=== PATIENT | male | born 1955 | race Caucasian/White ===

== ENCOUNTER 2016-11-03 18:46 | Emergency (ER) | payer OTHER ==
[~2016-11-03] VITALS: Ht 175.3 cm; Wt 72.0 kg
[~2016-11-03 18:46] MED LIST: CARA1TAB6 PO; GABA100C4 PO; LANS30CA PO; LEVO25TA4 PO; VITA100021 INJ; VITA200013 PO
[2016-11-03 18:48] VITALS: BP 142/80; PULSE 66; RESP 20; TEMP 97.8; O2SAT 99
--- NOTE | 2016-11-03 19:29 | PD ---
HPI . Abdominal pain Chief Complaint: Abdominal Pain Time Seen by Provider: 19:21 Travel History International Travel<30 days: No Contact w/Intl Traveler<30days: No Traveled to known affect area: No History of Present Illness HPI Patient presents complaining with chronic abdominal pain associated with constipation. Onset was over a month ago. He waited by his primary care physician and had a CT of his abdomen and pelvis done at [facility]. Unfortunately, we do not have access to those films. The patient states that they saw something in the right side of his abdomen but he does not know what. He states that he has subsequently been referred to gastroenterology. That appointment is on November 16. Patient states that he is unable to wait that long to be seen for this problem. He denies fever. He denies vomiting. He reports chronic symptoms. He states that he is followed by urology for that. He states that that is unrelated to his current abdominal complaints. He reports that his symptoms are relieved by a laxative and are exacerbated by eating. PFSH Past Medical History Heart Rhythm Problems: No Cardiac Catheterization: No Cardiovascular Problems: No High Cholesterol: No Congestive Heart Failure: No Diabetes: No Diminished Hearing: No GERD: Yes (acid reflux) Hypertension: Yes Past Surgical History Coronary Artery Bypass Graft: No Eye Surgery: Yes (CATARACT SURG) Social History Alcohol Use: Yes (ocass. ) Tobacco Use: No Substance Use: No Allergies-Medications (Allergen,Severity, Reaction): Coded Allergies: Penicillin (Verified Allergy, Unknown, cannot remember, 11/03/16) Reported Meds & Prescriptions Reported Meds & Active Scripts Active Reported Vitamin B-12 (Cyanocobalamin) 1,000 Mcg Subl 1,000 Mcg INJ WEEKLY Carafate (Sucralfate) 1 Gm Tab 1 Gm PO TID On empty stomach Lansoprazole 30 Mg Capdr 30 Mg PO BID Vitamin D (Cholecalciferol) 2,000 Unit Cap 2,000 Units PO DAILY Gabapentin 100 Mg Cap 100 Mg PO TID Levothyroxine (Levothyroxine Sodium) 25 Mcg Tab 25 Mcg PO DAILY Review of Systems Except as stated in HPI: all other systems reviewed are Neg General / Constitutional: No: Fever, Chills Gastrointestinal: Positive: Abdominal Pain, Constipation, No: Nausea, Vomiting , Diarrhea Physical Exam Narrative GENERAL: Healthy-appearing and in no acute distress. SKIN: Warm and dry. HEAD: Atraumatic. Normocephalic. EYES: Pupils equal and round. Divergent gaze. ENT: No nasal bleeding or discharge. Mucous membranes pink and moist. NECK: Trachea midline. Neck supple. CARDIOVASCULAR: Regular rate and rhythm. Heart sounds normal. RESPIRATORY: No accessory muscle use. Lungs clear with full air movement throughout. GASTROINTESTINAL: Abdomen soft. No guarding or rebound. Right sided mid to lower abdominal tenderness. Nondistended. MUSCULOSKELETAL: No obvious deformities. No edema. NEUROLOGICAL: Awake and alert. No obvious cranial nerve deficits. Motor grossly within normal limits. Normal speech. PSYCHIATRIC: Appropriate mood and affect; insight and judgment normal. Data Data Last Documented VS Vital Signs Date Time Temp Pulse Resp B/P Pulse Ox O2 Delivery O2 Flow Rate FiO2 11/03/16 19:33 18 99 Room Air 11/03/16 18:48 97.8 66 142/80 Orders Complete Blood Count With Diff (11/03/16 19:21) Comprehensive Metabolic Panel (11/03/16 19:21) Urinalysis - C+S If Indicated (11/03/16 19:21) Ct Abd/Pel W Iv Contrast(Rout) (11/03/16 19:21) Iv Access Insert/Monitor (11/03/16 19:21) Ecg Monitoring (11/03/16 19:21) Oximetry (11/03/16 19:21) Sodium Chloride 0.9% Flush (Ns Flush) (11/03/16 19:30) Electrocardiogram (11/03/16 19:21) Oral Contrast - Adult (11/03/16 19:30) Diatrizoate Liq ( Gastrodani Liq) (11/03/16 19:38) Iohexol 350 Inj (Omnipaque 350 Inj) (11/03/16 20:43) Labs Laboratory Tests Test 11/03/16 19:30 White Blood Count 5.8 TH/MM3 Red Blood Count 5.38 MIL/MM3 Hemoglobin 16.6 GM/DL Hematocrit 47.3 % Mean Corpuscular Volume 87.9 FL Mean Corpuscular Hemoglobin 30.9 PG Mean Corpuscular Hemoglobin 35.1 % Concent Red Cell Distribution Width 15.1 % Platelet Count 212 TH/MM3 Mean Platelet Volume 7.7 FL Neutrophils (%) (Auto) 57.1 % Lymphocytes (%) (Auto) 30.2 % Monocytes (%) (Auto) 10.2 % Eosinophils (%) (Auto) 1.8 % Basophils (%) (Auto) 0.7 % Neutrophils # (Auto) 3.3 TH/MM3 Lymphocytes # (Auto) 1.8 TH/MM3 Monocytes # (Auto) 0.6 TH/MM3 Eosinophils # (Auto) 0.1 TH/MM3 Basophils # (Auto) 0.0 TH/MM3 CBC Comment DIFF FINAL Differential Comment Sodium Level 140 MEQ/L Potassium Level 4.2 MEQ/L Chloride Level 102 MEQ/L Carbon Dioxide Level 32.5 MEQ/L Anion Gap 6 MEQ/L Blood Urea Nitrogen 19 MG/DL Creatinine 0.96 MG/DL Estimat Glomerular Filtration 80 ML/MIN Rate Random Glucose 88 MG/DL Calcium Level 9.1 MG/DL Total Bilirubin 0.6 MG/DL Aspartate Amino Transf 16 U/L (AST/SGOT) Alanine Aminotransferase 38 U/L (ALT/SGPT) Alkaline Phosphatase 70 U/L Total Protein 7.9 GM/DL Albumin 4.4 GM/DL [facility] Medical Decision Making Medical Screen Exam Complete: Yes Emergency Medical Condition: Yes Medical Record Reviewed: Yes Interpretation(s) EKG shows a normal sinus rhythm. EKG is unchanged from previous. Differential Diagnosis Differential diagnosis of abdominal pain includes but is not limited to gastritis, pancreatitis, hepatitis, gastroenteritis, gallbladder disease, constipation, urinary retention, UTI, peptic ulcer disease, diverticulitis or appendicitis Narrative Course Patient presents for the evaluation of chronic right-sided abdominal pain with constipation. CBC & BMP Diagram 11/03/16 19:30 Diagnosis Primary Impression: Abdominal pain Qualified Code: R10.31 - Right lower quadrant abdominal pain Condition: Stable Stefani Rojo MD Nov 03, 2016 19:29
[2016-11-03] MEDS ORDERED: SODIUM CHLORIDE 0.9% FLUSH 10 ML FLUSH IV FLUSH PRN (19:30)
[2016-11-03 19:33] VITALS: RESP 18; O2SAT 99
[2016-11-03] MEDS ORDERED: DIATRIZOATE MEGLUM/DIATRIZOATE SOD 9 ML CUP ONE (19:38)
[2016-11-03 20:14] LABS: AUTOMATED NEUTROPHIL # 3.3 TH/MM3 (1.8-7.7); BASOPHIL % 0.7 % (0.0-2.0); EOSINOPHIL # 0.1 TH/MM3 (0-0.4); EOSINOPHIL % 1.8 % (0.0-4.0); HEMATOCRIT 47.3 % (39.0-51.0); HEMO FLAGS DIFF FINAL; LYMPH % 30.2 % (9.0-44.0); LYMPHOCYTE # 1.8 TH/MM3 (1.0-4.8); MEAN CELL VOLUME 87.9 FL (80.0-100.0); MEAN CORPUSCULAR HEMOGLOBIN 30.9 PG (27.0-34.0); MEAN CORPUSCULAR HGB CONC 35.1 % (32.0-36.0); MONO % 10.2 % (0.0-8.0); NEUT % 57.1 % (16.0-70.0); PLATELET COUNT 212 TH/MM3 (150-450); RED BLOOD COUNT 5.38 MIL/MM3 (4.50-5.90); RED CELL DISTRIBUTION WIDTH 15.1 % (11.6-17.2); WHITE BLOOD COUNT 5.8 TH/MM3 (4.0-11.0)
[2016-11-03 20:25] LABS: ANION GAP 6 MEQ/L (5-15); AST (GOT) 16 U/L (15-37); BICARBONATE 32.5 MEQ/L (21.0-32.0); BLOOD UREA NITROGEN 19 MG/DL (7-18); CHLORIDE 102 MEQ/L (98-107); GLOMERULAR FILTRATION RATE 80 ML/MIN (>89); POTASSIUM 4.2 MEQ/L (3.5-5.1); SODIUM (NA) 140 MEQ/L (136-145)
[2016-11-03 20:28] LABS: ALKALINE PHOSPHATASE 70 U/L (45-117); ALT (GPT) 38 U/L (12-78); TOTAL BILIRUBIN ADULT 0.6 MG/DL (0.2-1.0)
[2016-11-03] MEDS ORDERED: IOHEXOL 350 MG/ML 10 ML VIAL (for RAD DIAG) IV ONE (20:43)
[2016-11-03 20:50] VITALS: BP 111/67; PULSE 70; RESP 18; O2SAT 99
[2016-11-03] MEDS ORDERED: DICYCLOMINE HCL 20 MG/2 ML VIAL IM ONE (21:00)
--- NOTE | 2016-11-03 21:00 | RADRPT ---
EXAM DATE/TIME: 11/03/2016 20:41 [facility] COMPARISON: CT ABDOMEN & PELVIS W CONTRAST, August 03, 2014, 18:11. EXTERNAL COMPARISON : [facility], CT ABDOMEN AND CTA RUNOFF October 22, 2016 INDICATIONS : Diffuse abdominal pain X one month; worsening today. IV CONTRAST: 95 cc Omnipaque 350 (iohexol) IV ORAL CONTRAST: Prescribed oral contrast ingested. RADIATION DOSE: 7.95 CTDIvol (mGy) MEDICAL HISTORY : Gastroesophageal reflux disease. SURGICAL HISTORY : None. ENCOUNTER: Initial ACUITY: 1 month PAIN SCALE: 4/10 LOCATION: Bilateral abdomen TECHNIQUE: Volumetric scanning of the abdomen and pelvis was performed. Using automated exposure control and ad justment of the mA and/or kV according to patient size, radiation dose was kept as low as reasonably achievable to obtain optimal diagnostic quality images. FINDINGS: LOWER LUNGS: The visualized lower lungs are clear. LIVER: Homogeneous density without lesion. There is no dilation of the biliary tree. No calcified gallston es. SPLEEN: Normal size without lesion. PANCREAS: Within normal limits. KIDNEYS: Normal in size and shape. There is no mass, stone or hydronephrosis. ADRENAL GLANDS: Within normal limits. VASCULAR: There is no aortic aneurysm. BOWEL/MESENTERY: The stomach, small bowel, and colon demonstrate no acute abnormality. There is no free intraperitone al air or fluid. The appendix is unremarkable. There is stool in the colon. No inflammatory changes a re seen. A few scattered diverticula are again noted. There's been no significant changes compared to the prior study. ABDOMINAL WALL: Within normal limits. RETROPERITONEUM: There is no lymphadenopathy. BLADDER: No wall thickening or mass. REPRODUCTIVE: Within normal limits. INGUINAL: There is no lymphadenopathy or hernia. MUSCULOSKELETAL: Within normal limits for patient age. CONCLUSION: Unremarkable and stable CT scan of the abdomen and pelvis compared to the prior examination. Madhu Yost MD on November 03, 2016 at 20:56 Board Certified Radiologist. This report was verified electronically.
[2016-11-03] MEDS ORDERED: LACTCAP8 PO (21:07)
[2016-11-03] MEDS ORDERED: RANI150T PO (21:07)
[2016-11-03] MEDS ORDERED: PEG (High)/E-LYTE SOLN 4000 ML BTL PO ONE (21:30)
--- NOTE | 2016-11-03 21:30 | PD ---
Physical Exam Date Seen by Provider: Nov 03, 2016 Time Seen by Provider: 21:27 Data Data Last Documented VS Vital Signs Date Time Temp Pulse Resp B/P Pulse Ox O2 Delivery O2 Flow Rate FiO2 11/03/16 20:50 70 18 111/67 99 Room Air 11/03/16 18:48 97.8 Orders Complete Blood Count With Diff (11/03/16 19:21) Comprehensive Metabolic Panel (11/03/16 19:21) Urinalysis - C+S If Indicated (11/03/16 19:21) Ct Abd/Pel W Iv Contrast(Rout) (11/03/16 19:21) Iv Access Insert/Monitor (11/03/16 19:21) Ecg Monitoring (11/03/16 19:21) Oximetry (11/03/16 19:21) Sodium Chloride 0.9% Flush (Ns Flush) (11/03/16 19:30) Electrocardiogram (11/03/16 19:21) Oral Contrast - Adult (11/03/16 19:30) Diatrizoate Liq ( Gastroview Liq) (11/03/16 19:38) Iohexol 350 Inj (Omnipaque 350 Inj) (11/03/16 20:43) Dicyclomine Inj (Bentyl Inj) (11/03/16 21:00) Peg (High)/E-Lyte Liq (Colyte Liq) (11/03/16 21:30) Labs Laboratory Tests Test 11/03/16 19:30 White Blood Count 5.8 TH/MM3 Red Blood Count 5.38 MIL/MM3 Hemoglobin 16.6 GM/DL Hematocrit 47.3 % Mean Corpuscular Volume 87.9 FL Mean Corpuscular Hemoglobin 30.9 PG Mean Corpuscular Hemoglobin 35.1 % Concent Red Cell Distribution Width 15.1 % Platelet Count 212 TH/MM3 Mean Platelet Volume 7.7 FL Neutrophils (%) (Auto) 57.1 % Lymphocytes (%) (Auto) 30.2 % Monocytes (%) (Auto) 10.2 % Eosinophils (%) (Auto) 1.8 % Basophils (%) (Auto) 0.7 % Neutrophils # (Auto) 3.3 TH/MM3 Lymphocytes # (Auto) 1.8 TH/MM3 Monocytes # (Auto) 0.6 TH/MM3 Eosinophils # (Auto) 0.1 TH/MM3 Basophils # (Auto) 0.0 TH/MM3 CBC Comment DIFF FINAL Differential Comment Sodium Level 140 MEQ/L Potassium Level 4.2 MEQ/L Chloride Level 102 MEQ/L Carbon Dioxide Level 32.5 MEQ/L Anion Gap 6 MEQ/L Blood Urea Nitrogen 19 MG/DL Creatinine 0.96 MG/DL Estimat Glomerular Filtration 80 ML/MIN Rate Random Glucose 88 MG/DL Calcium Level 9.1 MG/DL Total Bilirubin 0.6 MG/DL Aspartate Amino Transf 16 U/L (AST/SGOT) Alanine Aminotransferase 38 U/L (ALT/SGPT) Alkaline Phosphatase 70 U/L Total Protein 7.9 GM/DL Albumin 4.4 GM/DL [facility] Medical Record Reviewed: Yes Supervised Visit with GAL: Yes Interpretation(s) Last 24 hours Impressions Abdomen/Pelvis CT 11/03/161920 Signed Impressions: Service Date/Time: Thursday, November 03, 2016 20:41 - CONCLUSION: Unremarkable and stable CT scan of the abdomen and pelvis compared to the prior examination. Madhu Yost MD CBC & BMP Diagram 11/03/16 19:30 Differential Diagnosis Differential diagnoses: Constipation, diverticulitis, inflammatory bowel disease Narrative Course Patient's laboratory tests have been reviewed. The patient is resting comfortable in examination room. His CAT scan is unremarkable for any acute intra-abdominal process. I discussed with the patient taking home a jug of GoLYTELY and to drink a cup of it while awake until the moves his bowels freely. He is also advised to return to the ER if he develops worsening pain, fever, nausea vomiting or worsening symptoms. Patient verbally understands treatment plan of follow-up and agrees. This is abdominal pain, constipation Diagnosis Primary Impression: Abdominal pain Qualified Code: R10.31 - Right lower quadrant abdominal pain Patient Instructions: General Instructions Additional Instruction: Rest. GoLYTELY 1 cup every hour while awake until you move your bowels freely. Discontinue GoLYTELY at that point. Follow-up with your doctor on Saturday. Return to the ER if symptoms worsen or any problem develops. Med/Other Pt SpecificInfo: Other (GoLYTELY) Disposition: 01 DISCHARGE HOME Condition: Stable [place] Nov 03, 2016 21:30
[2016-11-03 22:21] VITALS: BP 92/55; PULSE 59; RESP 18; TEMP 98.4; O2SAT 98
[2016-11-03 22:46] LABS: BLOOD, URINE NEG (NEG); COMMENT (UR) CULT NOT INDICATED; CULTURE IF INDICATED CULT NOT INDICATED; GLUCOSE,URINE NEG (NEG); KETONE, URINE NEG (NEG); MUCUS URINE FEW /lpf (OCC); NITRITE,URINE NEG (NEG); URINE COLOR YELLOW (YELLW/STRAW)
--- NOTE | 2016-11-04 10:32 | EKG ---
Date Performed: 11/03/2016 Time Performed: 19:50:02 PTAGE: 61 years EKG: SINUS BRADYCARDIA NONSPECIFIC T-WAVE ABNORMALITY BORDERLINE ECG Compared to prior tracing n o significant change PREVIOUS TRACING : 06/09/2016 15.01 DOCTOR: Kathryn Rock Interpretating Date/Time 11/04/2016 10:26:32
== END 2016-11-03 22:28 | disposition home or self-care (01) ==
LOC: NEPD 18:46
DX: K59.00 Constipation, unspecified (principal); I10 Essential (primary) hypertension; R00.1 Bradycardia, unspecified
CPT/HCPCS: 74177; 80053; 81001; 85025; 93005; 96372; 99284; J0500; Q9963; Q9967

== ENCOUNTER 2017-07-10 13:28 | Observation (INO) | payer OTHER ==
[~2017-07-10] VITALS: Ht 175.3 cm; Wt 73.0 kg
[~2017-07-10 13:28] MED LIST changes: -CARA1TAB6 PO; -GABA100C4 PO; +LACTCAP8 PO; -LANS30CA PO; -LEVO25TA4 PO; +RANI150T PO; -VITA100021 INJ
[2017-07-10 13:29] VITALS: BP 133/76; PULSE 75; RESP 16; TEMP 96.8; O2SAT 99
[2017-07-10] MEDS ORDERED: ZANT150T2 PO (14:34)
[2017-07-10] MEDS ORDERED: PROT40TA PO (14:34)
[2017-07-10 14:36] VITALS: BP 119/69; PULSE 63; RESP 17; O2SAT 99
--- NOTE | 2017-07-10 14:39 | PD ---
HPI Chief Complaint: Chest Pain Time Seen by Provider: 14:27 Travel History International Travel<30 days: No Contact w/Intl Traveler<30days: No Traveled to known affect area: No History of Present Illness HPI 62-year-old male presents to the emergency department for evaluation of chest pain. Patient states he has had "lung pain, cough, chest congestion" for approximately 3 weeks. He states that he saw his primary care physician O was prescribed azithromycin and prednisone. He has no improvement in his symptoms. He does report an ongoing dry cough. He does state that starting 2 days ago, he noticed some left-sided chest pressure, currently 5/10 without radiation. Patient also states that when he lays on his left arm he will notice some left arm numbness. Patient denies any fevers or chills. He states that he has been diaphoretic the past 2 days. He reports history of GERD and takes Zantac and Protonix. Patient denies any cardiac history. He states last stress test was early in 2015. He is a nonsmoker. He denies any recent surgery or travel. No hemoptysis. No leg edema. No history of DVT or PE. Moderate severity. No exacerbating or alleviating factors. PFSH Past Medical History Heart Rhythm Problems: No Cardiac Catheterization: No Cardiovascular Problems: No High Cholesterol: No Congestive Heart Failure: No Diabetes: No Diminished Hearing: No GERD: Yes (acid reflux) Hypertension: Yes Past Surgical History Coronary Artery Bypass Graft: No Eye Surgery: Yes (CATARACT SURG) Social History Alcohol Use: Yes (ocass. ) Tobacco Use: No Substance Use: No Allergies-Medications (Allergen,Severity, Reaction): Coded Allergies: penicillin G (Unverified Allergy, Unknown, cannot remember, 07/10/17) Reported Meds & Prescriptions Reported Meds & Active Scripts Active Reported Zantac (Ranitidine HCl) 150 Mg Tab 150 Mg PO DAILY Protonix (Pantoprazole Sodium) 40 Mg Tab 40 Mg PO BID Probiotic (Lactobacillus Acidophilus) 1 Cap Cap 1 Cap PO DAILY Vitamin D (Cholecalciferol) 2,000 Unit Cap 2,000 Units PO DAILY Review of Systems Except as stated in HPI: all other systems reviewed are Neg Physical Exam Narrative GENERAL: Well-nourished, well-developed male patient, afebrile. SKIN: Focused skin assessment warm/dry. HEAD: Normocephalic. Atraumatic. EYES: No scleral icterus. No injection or drainage. NECK: Supple, trachea midline. No JVD or lymphadenopathy. CARDIOVASCULAR: Regular rate and rhythm without murmurs, gallops, or rubs. Bilateral radial and pedal pulses are 2+. RESPIRATORY: Breath sounds equal bilaterally. No accessory muscle use. Lungs sounds are clear to auscultation. GASTROINTESTINAL: Abdomen soft, non-tender, nondistended. MUSCULOSKELETAL: No cyanosis, or edema. Mild reproduction of midsternal chest pain, no reproduction of left-sided chest pain. BACK: Nontender without obvious deformity. No CVA tenderness. Data Data Last Documented VS Vital Signs Date Time Temp Pulse Resp B/P (MAP) Pulse Ox O2 Delivery O2 Flow Rate FiO2 07/10/17 14:41 63 17 119/69 (86) 99 Room Air 102/60 (74) 07/10/17 13:29 96.8 Orders Orders Electrocardiogram (07/10/17 13:42) Ckmb (Isoenzyme) Profile (07/10/17 13:42) Complete Blood Count With Diff (07/10/17 13:42) Comprehensive Metabolic Panel (07/10/17 13:42) Magnesium (Mg) (07/10/17 13:42) Prothrombin Time / Inr (Pt) (07/10/17 13:42) Act Partial Throm Time (Ptt) (07/10/17 13:42) Troponin I (07/10/17 13:42) Chest, Pa & Lat (07/10/17 13:42) Ecg Monitoring (07/10/17 14:33) Bilateral Bp Monitoring (07/10/17 14:33) Iv Access Insert/Monitor (07/10/17 14:33) Oximetry (07/10/17 14:33) Oxygen Administration (07/10/17 14:33) Sodium Chloride 0.9% Flush (Ns Flush) (07/10/17 14:45) Aspirin Chew (Aspirin Chew) (07/10/17 14:45) Admit Order (Ed Use Only) (07/10/17 16:32) Labs Laboratory Tests Test 07/10/17 14:50 White Blood Count 4.0 TH/MM3 Red Blood Count 5.34 MIL/MM3 Hemoglobin 16.2 GM/DL Hematocrit 47.6 % Mean Corpuscular Volume 89.2 FL Mean Corpuscular Hemoglobin 30.3 PG Mean Corpuscular Hemoglobin Concent 34.0 % Red Cell Distribution Width 14.9 % Platelet Count 208 TH/MM3 Mean Platelet Volume 7.7 FL Neutrophils (%) (Auto) 56.0 % Lymphocytes (%) (Auto) 29.6 % Monocytes (%) (Auto) 11.7 % Eosinophils (%) (Auto) 2.0 % Basophils (%) (Auto) 0.7 % Neutrophils # (Auto) 2.2 TH/MM3 Lymphocytes # (Auto) 1.2 TH/MM3 Monocytes # (Auto) 0.5 TH/MM3 Eosinophils # (Auto) 0.1 TH/MM3 Basophils # (Auto) 0.0 TH/MM3 CBC Comment DIFF FINAL Differential Comment Prothrombin Time 10.3 SEC Prothromb Time International Ratio 1.0 RATIO Activated Partial Thromboplast Time 25.3 SEC Blood Urea Nitrogen 13 MG/DL Creatinine 1.18 MG/DL Random Glucose 72 MG/DL Total Protein 7.8 GM/DL Albumin 4.0 GM/DL Calcium Level 8.9 MG/DL Magnesium Level 2.5 MG/DL Alkaline Phosphatase 81 U/L Aspartate Amino Transf (AST/SGOT) 19 U/L Alanine Aminotransferase (ALT/SGPT) 40 U/L Total Bilirubin 0.5 MG/DL Sodium Level 136 MEQ/L Potassium Level 4.0 MEQ/L Chloride Level 102 MEQ/L Carbon Dioxide Level 29.9 MEQ/L Anion Gap 4 MEQ/L Estimat Glomerular Filtration Rate 63 ML/MIN Total Creatine Kinase 68 U/L Troponin I LESS THAN 0.02 NG/ML MDM Medical Decision Making Medical Screen Exam Complete: Yes Emergency Medical Condition: Yes Medical Record Reviewed: Yes Interpretation(s) chest x-ray - CONCLUSION: No acute disease. Differential Diagnosis ACS versus chest wall pain versus anxiety versus pneumonia versus URI Narrative Course 62-year-old male presents to the emergency department for evaluation of chest pain that started 2 days ago. He also reports some "lung pain, cough, congestion" for 3 weeks. Patient does appear well on exam. EKG shows sinus rhythm, no acute ST changes. CBC, BMP, CK, troponin, magnesium, PTT, PT/INR, chest x-ray are ordered and pending. CBC shows no acute abnormality. BMP shows no acute abnormality. CK is 68. Troponin is less than 0.02. Magnesium is 2.5. Coags are unremarkable. Chest x -ray shows no acute disease. I discussed chest pain center with the patient who agrees. Diagnosis Primary Impression: Chest pain Qualified Codes: R07.9 - Chest pain, unspecified Admitting Information Admitting Physician Requests: Shara Guerra Jul 10, 2017 14:39
[2017-07-10 14:41] VITALS: BP_SYST 102; BP_SYST 119; BP_DIAS 60; BP_DIAS 69; PULSE 63; RESP 17; O2SAT 99
--- NOTE | 2017-07-10 14:43 | RADRPT ---
EXAM DATE/TIME: 07/10/2017 14:17 [facility] COMPARISON: No previous studies available for comparison. INDICATIONS : Cough and congestion for 3 weeks. MEDICAL HISTORY : None. SURGICAL HISTORY : None. ENCOUNTER: Initial ACUITY: 3 weeks PAIN SCORE: 0/10 LOCATION: Bilateral chest FINDINGS: PA and lateral views of the chest demonstrate the lungs to be symmetrically aerated without evidence of mass, infiltrate or effusion. The cardiomediastinal contours are unremarkable. Osseous structure s are intact. CONCLUSION: No acute disease. Tenzin Fuller MD on July 10, 2017 at 14:31 Board Certified Radiologist. This report was verified electronically.
[2017-07-10] MEDS ORDERED: SODIUM CHLORIDE 0.9% FLUSH 10 ML FLUSH IVF PRN (14:45)
[2017-07-10] MEDS ORDERED: ASPIRIN 81 MG CHEW TAB CHEW ONE (14:45)
[2017-07-10 15:36] LABS: AUTOMATED NEUTROPHIL # 2.2 TH/MM3 (1.8-7.7); BASOPHIL % 0.7 % (0.0-2.0); EOSINOPHIL # 0.1 TH/MM3 (0-0.4); HEMATOCRIT 47.6 % (39.0-51.0); HEMO FLAGS DIFF FINAL; LYMPH % 29.6 % (9.0-44.0); LYMPHOCYTE # 1.2 TH/MM3 (1.0-4.8); MEAN CELL VOLUME 89.2 FL (80.0-100.0); MEAN CORPUSCULAR HEMOGLOBIN 30.3 PG (27.0-34.0); MONO % 11.7 % (0.0-8.0); PLATELET COUNT 208 TH/MM3 (150-450); RED BLOOD COUNT 5.34 MIL/MM3 (4.50-5.90); RED CELL DISTRIBUTION WIDTH 14.9 % (11.6-17.2)
[2017-07-10 16:04] LABS: ANION GAP 4 MEQ/L (5-15); AST (GOT) 19 U/L (15-37); BICARBONATE 29.9 MEQ/L (21.0-32.0); BLOOD UREA NITROGEN 13 MG/DL (7-18); CHLORIDE 102 MEQ/L (98-107); GLOMERULAR FILTRATION RATE 63 ML/MIN (>89); MAGNESIUM 2.5 MG/DL (1.5-2.5); SODIUM (NA) 136 MEQ/L (136-145)
[2017-07-10 16:06] LABS: ALT (GPT) 40 U/L (12-78)
[2017-07-10 16:09] LABS: ALKALINE PHOSPHATASE 81 U/L (45-117); TOTAL BILIRUBIN ADULT 0.5 MG/DL (0.2-1.0)
[2017-07-10 16:23] LABS: CREATINE KINASE 68 U/L (39-308)
[2017-07-10 16:31] LABS: APTT (PATIENT) 25.3 SEC (24.3-30.1); PROTHROMBIN TIME - PATIENT 10.3 SEC (9.8-11.6)
[2017-07-10] MEDS ORDERED: SODIUM CHLORIDE 0.9% FLUSH 10 ML FLUSH IV FLUSH PRN ×2 (16:45→17:15)
[2017-07-10 17:35] VITALS: BP 116/69
[2017-07-10] MEDS ORDERED: NITROGLYCERIN 0.4 MG SL 25 TABS/BTL SL PRN (18:15)
[2017-07-10] MEDS ORDERED: ACETAMINOPHEN 500 MG CPLT PO PRN (18:15)
[2017-07-10] MEDS ORDERED: ONDANSETRON HCL 4 MG/2 ML VIAL IV PUSH PRN (18:15)
--- NOTE | 2017-07-10 19:01 | HHI.HP ---
HPI Primary Care Physician Dwight Carrillo M.D. Chief Complaint Chest pain History of Present Illness 62 year old male with history of GERD presents to the ER for further evaluation of chest pain. Reports having chest congestion 3 weeks. Seen PCP during first week of respiratory illness and PCP felt discomfort related to GERD. At that time, Zantac added to GERD medication regimen. Patient states after a few days of taking Zantac felt worse and went to [facility] walk in clinic. Given azithromycin and prednisone for 6 days. Complete medications over one week ago and continues to have respiratory symptoms of cough. Come to ER today for further evaluation after developing chest pain on Saturday. Described two different types of chest pain. Left anterior chest pain characterized as pressure. Duration few minutes. No associated symptoms, or known precipitating or relieving factors, or radiation of pain. Substernal chest pain also began on Saturday. Characterizes as a constant pain, made worse with touching area. Review of Systems General: Recent illness as stated above. No fatigue, weakness, fever, chills, or change in appetite however reports spontaneous diaphoresis x3 weeks. HEENT: No [place], no vision changes, no nasal congestion or drainage, no dysphasia CV: As stated above. Currently has substernal chest pain made worse with palpation. RESP: No SOB. cough x3 weeks, nonproductive. No wheeze. Given an inhaler same times given antibiotic, reports using inhaler a few times. GI: No nausea, vomiting, bowel changes, diarrhea, constipation, pain, distention , melena, or blood in the stool. No unintentional weight gain or weight loss. : No dysuria, urgency, frequency EXT: No lower leg edema, no paraesthesias MS: No discomfort or change in ROM NEURO: No dizziness, difficulty with balance, LOC, motor/sensory deficits PSYCH: No anxiety, depression SKIN: No rashes, no concerning lesions Past Family Social History Allergies: Coded Allergies: penicillin G (Unverified Allergy, Unknown, cannot remember, 07/10/17) Past Medical History Hypothyroidism, GERD Past Surgical History None Reported Medications Reported Meds & Active Scripts Active Reported Protonix (Pantoprazole Sodium) 40 Mg Tab 40 Mg PO BID Probiotic (Lactobacillus Acidophilus) 1 Cap Cap 1 Cap PO DAILY Vitamin D (Cholecalciferol) 2,000 Unit Cap 2,000 Units PO DAILY Active Ordered Medications Current Medications Medications (Trade) Dose Ordered Sig/Morteza Route Start Time Stop Time Status Last Admin (NS Flush) 2 ml UNSCH PRN IVF 07/10/17 14:45 (NS Flush) 2 ml UNSCH PRN IV FLUSH 07/10/17 17:15 UNV (Tylenol) 500 mg Q4H PRN PO 07/10/17 18:15 UNV (Zofran Inj) 4 mg Q6H PRN IV PUSH 07/10/17 18:15 UNV (Nitrostat Sl) 0.4 mg Q5M PRN SL 07/10/17 18:15 UNV (Aspirin) 325 mg DAILY PO 07/11/17 09:00 UNV Family History Noncontributory for early onset cardiovascular disease. Social History No known diabetes, hypertension, or hyperlipidemia. Lifelong nonsmoker. Denies any alcohol. Endorses a sedentary lifestyle. Retired. Past cardiac testing Reports exercise stress testing approx. one year ago at Dr. Hill office, reportedly unremarkable. 08/04/14 Nuclear treadmill-no signs of ischemia, EF reduced 44%. Physical Exam Vital Signs Vital Signs Date Time Temp Pulse Resp B/P (MAP) Pulse Ox O2 Delivery O2 Flow Rate FiO2 07/10/17 17:35 116/69 (85) 07/10/17 14:41 63 17 119/69 (86) 99 Room Air 102/60 (74) 07/10/17 14:36 63 17 119/69 (86) 99 Room Air 07/10/17 14:36 99 Room Air 07/10/17 14:36 63 17 119/69 (86) 99 Room Air 07/10/17 14:34 65 17 100 07/10/17 13:29 96.8 75 16 133/76 (95) 99 Physical Exam GENERAL: Alert WN, WD, NAD, pleasant, male HEAD: NC, AT EYES: Sclera clear, conjunctiva without injection ENT: Mucous membranes pink and moist CV: RRR, without murmur, rub, gallop, no JVD, S1-S2 no S3-S4. Chest pain reproduced in substernal area. RESP: Clear lungs throughout bilateral, no crackles, wheeze, rhonchi, symmetrical chest rise, nonlabored, able to speak in full sentences ABD: Soft, NT, ND, no masses, positive bowel tones EXT: Pulses +24, no dependent edema MS: Normal tone 4 extremities, nontender, no obvious deformities, full range of motion NEURO: CN II through CN XII grossly intact, motor strength 5/5 PSYCH: A+O 3, pleasant affect, appropriate speech, mood, insight and judgment SKIN: Normal turgor, normal texture, no lesions, no rashes, brisk cap refill, even hair distribution Laboratory Laboratory Tests Test 07/10/17 14:50 White Blood Count 4.0 Red Blood Count 5.34 Hemoglobin 16.2 Hematocrit 47.6 Mean Corpuscular Volume 89.2 Mean Corpuscular Hemoglobin 30.3 Mean Corpuscular Hemoglobin Concent 34.0 Red Cell Distribution Width 14.9 Platelet Count 208 Mean Platelet Volume 7.7 Neutrophils (%) (Auto) 56.0 Lymphocytes (%) (Auto) 29.6 Monocytes (%) (Auto) 11.7 Eosinophils (%) (Auto) 2.0 Basophils (%) (Auto) 0.7 Neutrophils # (Auto) 2.2 Lymphocytes # (Auto) 1.2 Monocytes # (Auto) 0.5 Eosinophils # (Auto) 0.1 Basophils # (Auto) 0.0 CBC Comment DIFF FINAL Differential Comment Prothrombin Time 10.3 Prothromb Time International Ratio 1.0 Activated Partial Thromboplast Time 25.3 Blood Urea Nitrogen 13 Creatinine 1.18 Random Glucose 72 Total Protein 7.8 Albumin 4.0 Calcium Level 8.9 Magnesium Level 2.5 Alkaline Phosphatase 81 Aspartate Amino Transf (AST/SGOT) 19 Alanine Aminotransferase (ALT/SGPT) 40 Total Bilirubin 0.5 Sodium Level 136 Potassium Level 4.0 Chloride Level 102 Carbon Dioxide Level 29.9 Anion Gap 4 Estimat Glomerular Filtration Rate 63 Total Creatine Kinase 68 Troponin I LESS THAN 0.02 Result Diagram: 07/10/17 1450 07/10/17 1450 Imaging Last Impressions Chest X-Ray 07/10/17 1342 Signed Impressions: Service Date/Time: Monday, July 10, 2017 14:17 - CONCLUSION: No acute disease. Tenzin Fuller MD Course EKG normal sinus, normal axis, no st t segment changes Caprini VTE Risk Assessment Caprini VTE Risk Assessment: Mod/High Risk (score >= 2) Caprini Risk Assessment Model Point Value = 1 Point Value = 2 Point Value = 3 Point Value = 5 Age 41-60 Minor surgery BMI > 25 kg/m2 Swollen legs Varicose veins or History of unexplained or recurrent spontaneous Oral contraceptives or hormone replacement Sepsis (< 1 month) Serious lung disease, including pneumonia (< 1 month) Abnormal pulmonary function Acute myocardial infarction Congestive heart failure (< 1 month) History of inflammatory bowel disease Medical patient at bed rest Age 61-74 Arthroscopic surgery Major open surgery (> 45 min) Laparoscopic surgery (> 45 min) Malignancy Confined to bed (> 72 hours) Immobilizing plaster cast Central venous access Age >= 75 History of VTE Family history of VTE Factor V Leiden Prothrombin [id number] Lupus anticoagulant Anticardiolipin antibodies Elevated serum homocysteine Heparin-induced thrombocytopenia Other congenital or acquired thrombophilia Stroke (< 1 month) Elective arthroplasty Hip, pelvis, or leg fracture Acute spinal cord injury (< 1 month) Prophylaxis Regimen Total Risk Factor Score Risk Level Prophylaxis Regimen 0-1 Low Early ambulation 2 Moderate Order ONE of the following: *Sequential Compression Device (SCD) *Heparin 5000 units SQ BID 3-4 Higher Order ONE of the following medications: *Heparin 5000 units SQ TID *Enoxaparin/Lovenox 40 mg SQ daily (WT < 150 kg, CrCl > 30 mL/min) *Enoxaparin/Lovenox 30 mg SQ daily (WT < 150 kg, CrCl > 10-29 mL/min) *Enoxaparin/Lovenox 30 mg SQ BID (WT < 150 kg, CrCl > 30 mL/min) AND/OR *Sequential Compression Device (SCD) 5 or more Highest Order ONE of the following medications: *Heparin 5000 units SQ TID (Preferred with Epidurals) *Enoxaparin/Lovenox 40 mg SQ daily (WT < 150 kg, CrCl > 30 mL/min) *Enoxaparin/Lovenox 30 mg SQ daily (WT < 150 kg, CrCl > 10-29 mL/min) *Enoxaparin/Lovenox 30 mg SQ BID (WT < 150 kg, CrCl > 30 mL/min) AND *Sequential Compression Device (SCD) Assessment and Plan Assessment and Plan #1 Chest pain-admitted to chest pain center. Rule out with 3 sets of EKGs and cardiac enzymes. Will be seen and evaluated by Dr. Gerard Craig in morning. Discussed possible stress testing in am, this will be determined after assessment made by crm marketing executive. Patient agreeable to plan of care. Obtain sed rate. #2 GERD-continue Protonix Suad Grant Jul 10, 2017 19:01
[2017-07-10] MEDS ORDERED: RESP: ALBUTEROL 2.5 MG/3 ML NEB (PRN) NEB (19:15)
[2017-07-10 19:39] LABS: CREATINE KINASE 63 U/L (39-308)
[2017-07-10] MEDS: PANTOPRAZOLE SOD 40 MG DELAYED RELEASE TAB PO SCH (20:16)
[2017-07-10 20:56] VITALS: BP 109/66; PULSE 66; RESP 16; TEMP 97.8; O2SAT 95
[2017-07-10 22:10] LABS: CREATINE KINASE 55 U/L (39-308)
[2017-07-11 00:47] VITALS: BP 104/60; PULSE 62; RESP 16; TEMP 97.5; O2SAT 96
[2017-07-11 05:05] VITALS: BP 94/56; PULSE 63; RESP 16; TEMP 97.5; O2SAT 95
[2017-07-11 08:00] VITALS: PULSE 69
[2017-07-11 08:03] VITALS: BP 100/60; PULSE 69; RESP 18; TEMP 97.3; O2SAT 96
[2017-07-11] MEDS ORDERED: ASPIRIN 325 MG TAB PO SCH (09:00)
[2017-07-11] MEDS ORDERED: CHOLECALCIFEROL (VIT D3) 1000 UNIT TAB PO SCH (09:00)
--- NOTE | 2017-07-11 09:34 | RADRPT ---
EXAM DATE/TIME: 07/11/2017 09:01 [facility] COMPARISON: No previous studies available for comparison. INDICATIONS : Congestion, headaches, sweating for several weeks RADIATION DOSE: 9.46 CTDIvol (mGy) MEDICAL HISTORY : Hypertension. SURGICAL HISTORY : None. ENCOUNTER: Initial ACUITY: 1 day PAIN SCORE: 3/10 LOCATION: cranial TECHNIQUE: Volumetric scanning of the paranasal sinuses was performed. Using automated exposure control and adj ustment of the mA and/or kV according to patient size, radiation dose was kept as low as reasonably a chievable to obtain optimal diagnostic quality images. DICOM format image data is available electro nically for review and comparison. FINDINGS: MAXILLARY SINUSES: Small retention cyst is seen along the floor of the right maxillary sinus. No significant mucosal thi ckening or fluid. Infundibula are patent. No anomalous inferior orbital ethmoid (Manny) air cells. ETHMOID SINUSES: Normal. No significant mucosal thickening or fluid. Fovea ethmoidal and lamina papyracea are symmet greyson and intact. SPHENOID SINUSES: Normal. No significant mucosal thickening or fluid. Sphenoethmoidal recesses are patent. No bony d ehiscence. FRONTAL SINUSES: Normal. No significant mucosal thickening or fluid. Frontal recesses are patent. No anomalous fron cadence air cells. NASAL FOSSA: Normal. No septal perforation or deviation. No jena bullosa or paradoxical turbinates are identifie d. OTHER: Normal. Limited views of the skull base and orbits are unremarkable. CONCLUSION: Small retention cyst right maxillary sinus otherwise normal exam without evidence of acute or chronic sinusitis. Tenzin Fuller MD on July 11, 2017 at 9:31 Board Certified Radiologist. This report was verified electronically.
[2017-07-11] MEDS: PANTOPRAZOLE SOD 40 MG DELAYED RELEASE TAB PO SCH (10:12)
[2017-07-11 11:40] VITALS: BP 86/56; PULSE 67; RESP 18; TEMP 95.9; O2SAT 97
[2017-07-11] MEDS ORDERED: LORazepam 0.5 MG TAB PO ONE (13:30)
[2017-07-11] MEDS ORDERED: REGADENOSON INJ 0.4 MG/5 ML SYR ONE (13:51)
--- NOTE | 2017-07-11 15:34 | RADRPT ---
EXAM DATE/TIME: 07/11/2017 13:32 [facility] COMPARISON: MYOCARDIAL PERF PHARM SPECT, GATED W/EF, August 04, 2014, 9:20. INDICATIONS : Chest pain. Angina. DOSE: 25.3 mCi Tc99m Myoview at stress. 8.7 mCi Tc99m Myoview at rest. 0.4 mg Lexiscan STRESS SYMPTOMS: Shortness of breath, head pressure. EJECTION FRACTION: 63% MEDICAL HISTORY : Gastroesophageal reflux disease. Hypertension. SURGICAL HISTORY : Rotator cuff. ENCOUNTER: Initial ACUITY: 1 day PAIN SCALE: 6/10 LOCATION: Left chest TECHNIQUE: The patient underwent pharmacologic stress with infusion of prescribed dose. Continuous ECG tracing was monitored during stress. Gated SPECT imaging was performed after stress and conventional SPECT i maging was performed at rest. The examination was performed on a SPECT/CT scanner, both attenuation and non-corrected datasets were reviewed. FINDINGS: DISTRIBUTION: The maximum perfused segment at stress is in the anterior wall. PERFUSION STUDY: There are no fixed or reversible perfusion defects. GATED STUDY: There is intact wall motion and thickening without hypokinetic or dyskinetic segments. Calculated eje ction fraction is 63%. CONCLUSION: No evidence of reversible or fixed perfusion abnormalities. Normal wall motion with 63% ejection fraction. RISK CATEGORY: Low (<1% Annual Mortality Rate) Tenzin Fuller MD on July 11, 2017 at 15:29 Board Certified Radiologist. This report was verified electronically.
--- NOTE | 2017-07-11 16:02 | HHI.DCPOC ---
Discharge Care Plan Diagnosis: (1) Chest pain Goals to Promote Your Health * To prevent worsening of your condition and complications * To maintain your health at the optimal level Directions to Meet Your Goals Take your medications as prescribed Follow your dietary instruction Follow activity as directed Keep your appointments as scheduled Take your immunizations and boosters as scheduled If your symptoms worsen call your PCP, if no PCP go to Urgent Care Center or Emergency Room Smoking is Dangerous to Your Health. Avoid second hand smoke Call the 24-hour hour crisis hotline for domestic abuse at Adnrew Vance Jul 11, 2017 16:02
[2017-07-11 16:07] VITALS: BP 110/65; PULSE 71; RESP 20; TEMP 95.7; O2SAT 97
--- NOTE | 2017-07-12 08:51 | EKG ---
Date Performed: 07/10/2017 Time Performed: 21:16:24 PTAGE: 62 years EKG: Sinus rhythm NORMAL ECG PREVIOUS TRACING : 07/10/2017 18.46 Since previous tracing, no significant change noted DOCTOR: Gerard Craig Interpretating Date/Time 07/12/2017 08:49:56
--- NOTE | 2017-07-12 08:52 | EKG ---
Date Performed: 07/10/2017 Time Performed: 18:46:38 PTAGE: 62 years EKG: SINUS BRADYCARDIA NONSPECIFIC T-WAVE ABNORMALITY BORDERLINE ECG PREVIOUS TRACING : 07/10/2017 14.35 Since previous tracing, no significant change noted DOCTOR: Gerard Craig Interpretating Date/Time 07/12/2017 08:50:53
--- NOTE | 2017-07-12 08:54 | EKG ---
Date Performed: 07/10/2017 Time Performed: 14:35:07 PTAGE: 62 years EKG: Sinus rhythm NORMAL ECG PREVIOUS TRACING : 11/03/2016 19.50 Since previous tracing, no significant change noted DOCTOR: Gerard Craig Interpretating Date/Time 07/12/2017 08:53:11
--- NOTE | 2017-07-12 08:58 | TR ---
Date Performed: 07/11/2017 Time Performed: 13:54:33 DOCTOR: Gerard Craig DRUG LIST: CLINICAL HISTORY: ANGINA REASON FOR TEST: REASON FOR ENDING: OBSERVATION: CONCLUSION: Lexiscan stress test was performed under standard four minute protocol. Radionuclid e was injected one minute prior to ending the test. No electrocardiographic abormalities were present to suggest ischemia. Nuclear imaging and interpretation are pending. COMMENTS:
== END 2017-07-11 17:22 | disposition home or self-care (01) ==
LOC: NEPE 13:28 → NEDA 16:34 → UNDODISOB 17:00 → NEPHCDU 17:53
PROVIDERS: ADMIT Internal Medicine Cardiovascular Disease; ATTEND Internal Medicine Cardiovascular Disease
DX: R07.89 Other chest pain (principal); K21.9 Gastro-esophageal reflux disease without esophagitis; R07.2 Precordial pain; E03.9 Hypothyroidism, unspecified; I10 Essential (primary) hypertension; R61 Generalized hyperhidrosis; R20.0 Anesthesia of skin; R05 Cough; R51 Headache
CPT/HCPCS: 70486; 71020; 78452; 80053; 82550; 83735; 84484; 85025; 85379; 85610; 85652; 85730; 93005; 93017; 99285; A9502; G0378; J2785

== ENCOUNTER → 2017-10-10 | Outpatient (CLI) | payer OTHER ==
[~2017-10-10] MED LIST changes: +PROT40TA PO; -RANI150T PO
== END ==
LOC: HRSP 12:58
PROVIDERS: ATTEND Specialist
DX: J44.9 Chronic obstructive pulmonary disease, unspecified (principal); R06.00 Dyspnea, unspecified; R09.02 Hypoxemia
CPT/HCPCS: 94060; 94618; 94726; 94729

== ENCOUNTER 2017-10-17 10:21 | Emergency (ER) | payer OTHER ==
[~2017-10-17] VITALS: Ht 175.3 cm; Wt 80.0 kg
[2017-10-17 10:25] VITALS: BP 111/65; PULSE 78; RESP 16; TEMP 98.1; O2SAT 98
[2017-10-17] MEDS ORDERED: SODIUM CHLOR 0.9% 1000 ML INJ 1,000 ML IV SCH (12:03)
[2017-10-17 12:04] LABS: AUTOMATED NEUTROPHIL # 3.5 TH/MM3 (1.8-7.7); BASOPHIL % 0.4 % (0.0-2.0); EOSINOPHIL % 0.7 % (0.0-4.0); HEMATOCRIT 45.6 % (39.0-51.0); HEMOGLOBIN 15.8 GM/DL (13.0-17.0); LYMPH % 17.2 % (9.0-44.0); MEAN CELL VOLUME 89.8 FL (80.0-100.0); MEAN CORPUSCULAR HEMOGLOBIN 31.1 PG (27.0-34.0); MEAN CORPUSCULAR HGB CONC 34.7 % (32.0-36.0); MEAN PLATELET VOLUME 7.7 FL (7.0-11.0); MONOCYTE # 1.1 TH/MM3 (0-0.9); NEUT % 62.7 % (16.0-70.0); PLATELET COUNT 163 TH/MM3 (150-450); RED BLOOD COUNT 5.08 MIL/MM3 (4.50-5.90); RED CELL DISTRIBUTION WIDTH 15.4 % (11.6-17.2); WHITE BLOOD COUNT 5.6 TH/MM3 (4.0-11.0)
--- NOTE | 2017-10-17 12:07 | PD ---
Data Data Last Documented VS Vital Signs Date Time Temp Pulse Resp B/P (MAP) Pulse Ox O2 Delivery O2 Flow Rate FiO2 10/17/17 10:25 98.1 78 16 111/65 (80) 98 Orders Orders Complete Blood Count With Diff (10/17/17 11:04) Comprehensive Metabolic Panel (10/17/17 11:04) Urinalysis - C+S If Indicated (10/17/17 11:04) Lipase (10/17/17 11:04) Influenzae A/B Antigen (10/17/17 11:04) Iv Access Insert/Monitor (10/17/17 12:03) Ecg Monitoring (10/17/17 12:03) Oximetry (10/17/17 12:03) Sodium Chlor 0.9% 1000 Ml Inj (Ns 1000 M (10/17/17 12:03) Sodium Chloride 0.9% Flush (Ns Flush) (10/17/17 12:15) Chest, Single Ap (10/17/17 12:08) Ct Abd/Pel W Iv Contrast(Rout) (10/17/17 12:14) Oseltamivir (Tamiflu) (10/17/17 13:00) Iohexol 350 Inj (Omnipaque 350 Inj) (10/17/17 13:26) Ed Discharge Order (10/17/17 13:42) Labs Laboratory Tests Test 10/17/17 11:23 10/17/17 11:30 Urine Color YELLOW Urine Turbidity CLEAR Urine pH 5.5 Urine Specific [place] 1.028 Urine Protein 30 mg/dL Urine Glucose (UA) NEG mg/dL Urine Ketones NEG mg/dL Urine Occult Blood NEG Urine Nitrite NEG Urine Bilirubin NEG Urine Urobilinogen LESS THAN 2.0 MG/DL Urine Leukocyte Esterase NEG Urine RBC 1 /hpf Urine WBC 1 /hpf Urine Mucus FEW /lpf Microscopic Urinalysis Comment CULT NOT INDICATED White Blood Count 5.6 TH/MM3 Red Blood Count 5.08 MIL/MM3 Hemoglobin 15.8 GM/DL Hematocrit 45.6 % Mean Corpuscular Volume 89.8 FL Mean Corpuscular Hemoglobin 31.1 PG Mean Corpuscular Hemoglobin Concent 34.7 % Red Cell Distribution Width 15.4 % Platelet Count 163 TH/MM3 Mean Platelet Volume 7.7 FL Neutrophils (%) (Auto) 62.7 % Lymphocytes (%) (Auto) 17.2 % Monocytes (%) (Auto) 19.0 % Eosinophils (%) (Auto) 0.7 % Basophils (%) (Auto) 0.4 % Neutrophils # (Auto) 3.5 TH/MM3 Lymphocytes # (Auto) 1.0 TH/MM3 Monocytes # (Auto) 1.1 TH/MM3 Eosinophils # (Auto) 0.0 TH/MM3 Basophils # (Auto) 0.0 TH/MM3 CBC Comment DIFF FINAL Differential Comment Blood Urea Nitrogen 13 MG/DL Creatinine 1.14 MG/DL Random Glucose 91 MG/DL Total Protein 7.7 GM/DL Albumin 3.8 GM/DL Calcium Level 8.2 MG/DL Alkaline Phosphatase 76 U/L Aspartate Amino Transf (AST/SGOT) 21 U/L Alanine Aminotransferase (ALT/SGPT) 53 U/L Total Bilirubin 0.6 MG/DL Sodium Level 139 MEQ/L Potassium Level 3.6 MEQ/L Chloride Level 101 MEQ/L Carbon Dioxide Level 29.6 MEQ/L Anion Gap 8 MEQ/L Estimat Glomerular Filtration Rate 65 ML/MIN Lipase 187 U/L MDM Supervised Visit with GAL: Yes Narrative Course I, Dr. Mccall, have reviewed the advance practice practitioner's documentation and am in agreement, met with the patient face to face, made the diagnosis, and the medical decision making was done by me. *My assessment and Findings: Patient seen and examined by me in addition to lisa Deshawn, appears well, abdomen fairly benign, he states that he came in today because he is actually feeling like he might have the flu. Agree with the assessment document by Felipe Hess, he is stable for outpatient treatment. Scripts Tramadol (Tramadol) 50 Mg Tab 50 MG PO Q6H Y for PAIN, #20 TAB 0 Refills Prov: Erasmo Mccall MD 10/17/17 Oseltamivir (Tamiflu) 75 Mg Cap 75 MG PO BID for Mgmt Viral Infection, #20 CAP 0 Refills Prov: Erasmo Mccall MD 10/17/17 Erasmo Mccall MD Oct 17, 2017 12:07
--- NOTE | 2017-10-17 12:08 | PD ---
HPI Chief Complaint: Abdominal Pain Time Seen by Provider: 11:55 Travel History International Travel<30 days: No Contact w/Intl Traveler<30days: No Traveled to known affect area: No History of Present Illness HPI 62-year-old male presents the emergency department with ongoing right upper quadrant and flank pain which he is had for approximately 1 month. Patient states he had gallbladder surgery laparoscopically 6 weeks ago. This was done by Dr. Ortiz. Patient states he felt well after the surgery but approximately 4 weeks ago developed this pain which seems to be intermittent and not related to food or movement. Currently the flank is more tender with burning sensation noted. This pain is rated as an 8 out of 10. Patient does have history of diverticulitis in the past. Patient also has had increased cough over the past several days, and questions whether he may have the flu, as he had fevers of up to 102 last evening. Patient denies changes in his urine, dysuria, or change in his bowels. He denies significant chest pain or shortness of breath other than the right flank pain. Patient states he had a CT scan 2 days ago of the chest, for questions of scar tissue on his chest x- ray performed for his recent surgery. Patient is allergic to penicillin and prednisone. He requests no pain meds at this time. PFSH Past Medical History Heart Rhythm Problems: No Cardiac Catheterization: No Cardiovascular Problems: No High Cholesterol: No Congestive Heart Failure: No Diabetes: No Diminished Hearing: No GERD: Yes (acid reflux) Hypertension: Yes Tetanus Vaccination: Unknown Influenza Vaccination: No Past Surgical History Abdominal Surgery: Yes (hernia repair) Cholecystectomy: Yes Coronary Artery Bypass Graft: No Eye Surgery: Yes (CATARACT SURG) Social History Alcohol Use: Yes (seldom) Tobacco Use: No Substance Use: No Allergies-Medications (Allergen,Severity, Reaction): Coded Allergies: penicillin G (Unverified Allergy, Unknown, cannot remember, 07/10/17) prednisone (Verified Adverse Reaction, Unknown, 10/17/17) Reported Meds & Prescriptions Reported Meds & Active Scripts Active Tramadol (Tramadol HCl) 50 Mg Tab 50 Mg PO Q6H PRN Tamiflu (Oseltamivir Phosphate) 75 Mg Cap 75 Mg PO BID Reported Protonix (Pantoprazole Sodium) 40 Mg Tab 40 Mg PO BID Probiotic (Lactobacillus Acidophilus) 1 Cap Cap 1 Cap PO DAILY Review of Systems Except as stated in HPI: all other systems reviewed are Neg General / Constitutional: No: Fever Eyes: No: Visual changes HENT: No: Headaches Cardiovascular: No: Chest Pain or Discomfort Respiratory: No: Shortness of Breath Gastrointestinal: Positive: Abdominal Pain, No: Nausea, Vomiting, Diarrhea Genitourinary: No: Dysuria Musculoskeletal: No: Pain Skin: No Rash Neurologic: No: Weakness Psychiatric: No: Depression Endocrine: No: Polydipsia Hematologic/Lymphatic: No: Easy Bruising Physical Exam Narrative GENERAL: Patient appears in mild distress. SKIN: Warm and dry. Normal color. Normal turgor. No rash. HEAD: Atraumatic. Normocephalic. EYES: Pupils equal and round. No scleral icterus. No injection or drainage. ENT: No nasal bleeding or discharge. Mucous membranes pink and moist. Pharynx is clear. Airways patent NECK: Trachea midline. Supple nontender CARDIOVASCULAR: Regular rate and rhythm. RESPIRATORY: No accessory muscle use. Clear to auscultation. Breath sounds equal bilaterally. GASTROINTESTINAL: Abdomen soft, mild to moderate nonspecific right sided abdominal tenderness with some lateralization, nondistended. No specific point tenderness or rebound is noted. No CVA tenderness hepatic and splenic margins not palpable. MUSCULOSKELETAL: Extremities without clubbing, cyanosis, or edema. No obvious deformities. NEUROLOGICAL: Awake and alert. No obvious cranial nerve deficits. Motor grossly within normal limits. Five out of 5 muscle strength in the arms and legs. Normal speech. PSYCHIATRIC: Appropriate mood and affect; insight and judgment normal. Data Data Last Documented VS Vital Signs Date Time Temp Pulse Resp B/P (MAP) Pulse Ox O2 Delivery O2 Flow Rate FiO2 10/17/17 10:25 98.1 78 16 111/65 (80) 98 Orders Orders Complete Blood Count With Diff (10/17/17 11:04) Comprehensive Metabolic Panel (10/17/17 11:04) Urinalysis - C+S If Indicated (10/17/17 11:04) Lipase (10/17/17 11:04) Influenzae A/B Antigen (10/17/17 11:04) Iv Access Insert/Monitor (10/17/17 12:03) Ecg Monitoring (10/17/17 12:03) Oximetry (10/17/17 12:03) Sodium Chlor 0.9% 1000 Ml Inj (Ns 1000 M (10/17/17 12:03) Sodium Chloride 0.9% Flush (Ns Flush) (10/17/17 12:15) Chest, Single Ap (10/17/17 12:08) Ct Abd/Pel W Iv Contrast(Rout) (10/17/17 12:14) Oseltamivir (Tamiflu) (10/17/17 13:00) Iohexol 350 Inj (Omnipaque 350 Inj) (10/17/17 13:26) Ed Discharge Order (10/17/17 13:42) Labs Laboratory Tests Test 10/17/17 11:23 10/17/17 11:30 Urine Color YELLOW Urine Turbidity CLEAR Urine pH 5.5 Urine Specific [place] 1.028 Urine Protein 30 mg/dL Urine Glucose (UA) NEG mg/dL Urine Ketones NEG mg/dL Urine Occult Blood NEG Urine Nitrite NEG Urine Bilirubin NEG Urine Urobilinogen LESS THAN 2.0 MG/DL Urine Leukocyte Esterase NEG Urine RBC 1 /hpf Urine WBC 1 /hpf Urine Mucus FEW /lpf Microscopic Urinalysis Comment CULT NOT INDICATED White Blood Count 5.6 TH/MM3 Red Blood Count 5.08 MIL/MM3 Hemoglobin 15.8 GM/DL Hematocrit 45.6 % Mean Corpuscular Volume 89.8 FL Mean Corpuscular Hemoglobin 31.1 PG Mean Corpuscular Hemoglobin Concent 34.7 % Red Cell Distribution Width 15.4 % Platelet Count 163 TH/MM3 Mean Platelet Volume 7.7 FL Neutrophils (%) (Auto) 62.7 % Lymphocytes (%) (Auto) 17.2 % Monocytes (%) (Auto) 19.0 % Eosinophils (%) (Auto) 0.7 % Basophils (%) (Auto) 0.4 % Neutrophils # (Auto) 3.5 TH/MM3 Lymphocytes # (Auto) 1.0 TH/MM3 Monocytes # (Auto) 1.1 TH/MM3 Eosinophils # (Auto) 0.0 TH/MM3 Basophils # (Auto) 0.0 TH/MM3 CBC Comment DIFF FINAL Differential Comment Blood Urea Nitrogen 13 MG/DL Creatinine 1.14 MG/DL Random Glucose 91 MG/DL Total Protein 7.7 GM/DL Albumin 3.8 GM/DL Calcium Level 8.2 MG/DL Alkaline Phosphatase 76 U/L Aspartate Amino Transf (AST/SGOT) 21 U/L Alanine Aminotransferase (ALT/SGPT) 53 U/L Total Bilirubin 0.6 MG/DL Sodium Level 139 MEQ/L Potassium Level 3.6 MEQ/L Chloride Level 101 MEQ/L Carbon Dioxide Level 29.6 MEQ/L Anion Gap 8 MEQ/L Estimat Glomerular Filtration Rate 65 ML/MIN Lipase 187 U/L [facility] Medical Decision Making Medical Screen Exam Complete: Yes Emergency Medical Condition: Yes Medical Record Reviewed: Yes Differential Diagnosis Right flank pain. Postop complication. Abdominal abscess. Diverticulitis. Biliary colic. Urinary tract infection. Kidney stone. Pneumonia. Pancreatitis. Influenza. Narrative Course Patient is medically stable at time of exam. Labs ordered including CBC, CMP, lipase, urinalysis, and rapid influenza. Diagnosis Primary Impression: Influenza A Additional Impression: Abdominal pain Qualified Codes: R10.11 - Right upper quadrant pain Referrals: Primary Care Physician Patient Instructions: General Instructions Additional Instructions: CBC is unremarkable. Chemistries unremarkable. Urinalysis shows no sign of infection or hematuria. Rapid influenza is positive for influenza A Chest x-ray was performed showing no acute process per radiologist. CT the abdomen and pelvis with IV contrast is ordered due to the patient's recent surgical history. CT is unremarkable for any acute findings per radiologist. Patient is given his first dose of Tamiflu 75 mg p.o. Patient will be continued on Tamiflu 75 mg twice daily 5 days. Patient is given tramadol 50 mg 1 every 6 hours as needed for his abdominal/ flank pain, #20. Patient should follow-up with his primary care physician for further evaluation as needed. Med/Other Pt SpecificInfo: Prescription(s) given Scripts Tramadol (Tramadol) 50 Mg Tab 50 MG PO Q6H Y for PAIN, #20 TAB 0 Refills Prov: Erasmo Mccall MD 10/17/17 Oseltamivir (Tamiflu) 75 Mg Cap 75 MG PO BID for Mgmt Viral Infection, #20 CAP 0 Refills Prov: Erasmo Mccall MD 10/17/17 Disposition: 01 DISCHARGE HOME Condition: Stable Felipe Hess Oct 17, 2017 12:08
[2017-10-17 12:09] LABS: BILIRUBIN, URINE NEG (NEG); BLOOD, URINE NEG (NEG); GLUCOSE,URINE NEG (NEG); KETONE, URINE NEG (NEG); MUCUS URINE FEW /lpf (OCC); NITRITE,URINE NEG (NEG); PH, URINE 5.5 (5.0-8.5); URINE COLOR YELLOW (YELLW/STRAW); URINE LEUKOCYTE ESTERASE NEG (NEG)
[2017-10-17] MEDS ORDERED: SODIUM CHLORIDE 0.9% FLUSH 10 ML FLUSH IV FLUSH PRN (12:15)
[2017-10-17 12:21] LABS: ALBUMIN 3.8 GM/DL (3.4-5.0); AST (GOT) 21 U/L (15-37); BICARBONATE 29.6 MEQ/L (21.0-32.0); BLOOD UREA NITROGEN 13 MG/DL (7-18); CALCIUM 8.2 MG/DL (8.5-10.1); CHLORIDE 101 MEQ/L (98-107); CREATININE 1.14 MG/DL (0.60-1.30); GLOMERULAR FILTRATION RATE 65 ML/MIN (>89); GLUCOSE,RANDOM 91 MG/DL (74-106); SODIUM (NA) 139 MEQ/L (136-145)
[2017-10-17 12:24] LABS: ALKALINE PHOSPHATASE 76 U/L (45-117); ALT (GPT) 53 U/L (12-78); TOTAL BILIRUBIN ADULT 0.6 MG/DL (0.2-1.0); TOTAL PROTEIN 7.7 GM/DL (6.4-8.2)
--- NOTE | 2017-10-17 12:35 | RADRPT ---
EXAM DATE/TIME: 10/17/2017 12:14 [facility] COMPARISON: CHEST SINGLE AP, June 09, 2016, 13:42. INDICATIONS : Pain around scars from surgery, pain radiates deep into abdomen and around to right kidney area. MEDICAL HISTORY : Cholelithiasis. SURGICAL HISTORY : Cholecystectomy. ENCOUNTER: Initial ACUITY: 3 weeks PAIN SCORE: 8/10 LOCATION: Bilateral chest FINDINGS: A single view of the chest demonstrates the lungs to be symmetrically aerated without evidence of mas s, infiltrate or effusion. The cardiomediastinal contours are unremarkable. Osseous structures are intact. CONCLUSION: No acute disease. No significant change has occurred. Madhu Yost MD on October 17, 2017 at 12:33 Board Certified Radiologist. This report was verified electronically.
[2017-10-17] MEDS ORDERED: OSELTAMIVIR PHOSPHATE 75 MG CAP PO ONE (13:00)
[2017-10-17] MEDS ORDERED: IOHEXOL 350 MG/ML 10 ML VIAL (for RAD DIAG) IVCONTRAST ONE (13:26)
--- NOTE | 2017-10-17 13:33 | RADRPT ---
EXAM DATE/TIME: 10/17/2017 13:11 [facility] COMPARISON: CT ABDOMEN & PELVIS W CONTRAST, November 03, 2016, 20:41. INDICATIONS : Right flank pain. IV CONTRAST: 94 cc Omnipaque 350 (iohexol) IV ORAL CONTRAST: No oral contrast ingested. RADIATION DOSE: 6.77 CTDIvol (mGy) MEDICAL HISTORY : None SURGICAL HISTORY : Cholecystectomy. ENCOUNTER: Initial ACUITY: 1 day PAIN SCALE: 8/10 LOCATION: Right flank TECHNIQUE: Volumetric scanning of the abdomen and pelvis was performed. Using automated exposure control and ad justment of the mA and/or kV according to patient size, radiation dose was kept as low as reasonably achievable to obtain optimal diagnostic quality images. DICOM format image data is available electro nically for review and comparison. FINDINGS: LOWER LUNGS: The visualized lower lungs are clear. LIVER: Homogeneous density without lesion. There is no dilation of the biliary tree. Status post cholecyst ectomy. No calcified gallstones. SPLEEN: Normal size without lesion. PANCREAS: Within normal limits. KIDNEYS: Normal in size and shape. There is no mass, stone or hydronephrosis. ADRENAL GLANDS: Within normal limits. VASCULAR: There is no aortic aneurysm. BOWEL/MESENTERY: The stomach, small bowel, and colon demonstrate no acute abnormality. There is no free intraperitone al air or fluid. The appendix is normal. ABDOMINAL WALL: Within normal limits. RETROPERITONEUM: There is no lymphadenopathy. BLADDER: No wall thickening or mass. REPRODUCTIVE: Within normal limits. INGUINAL: There is no lymphadenopathy or hernia. MUSCULOSKELETAL: Within normal limits for patient age. CONCLUSION: 1. Unremarkable CT of the abdomen and pelvis. 2. No acute obstructive uropathy. Erasmo Jewell MD on October 17, 2017 at 13:27 Board Certified Radiologist. This report was verified electronically.
[2017-10-17] MEDS ORDERED: TRAM50TA PO (13:42)
[2017-10-17] MEDS ORDERED: OSEL75 PO (13:42)
== END 2017-10-17 14:16 | disposition home or self-care (01) ==
LOC: NEPD 10:21
DX: J10.1 Influenza due to other identified influenza virus with other respiratory manifestations (principal); R10.11 Right upper quadrant pain
CPT/HCPCS: 71045; 74177; 80053; 81001; 83690; 85025; 87804; 96360; 99285; J7030; Q9967